=== PATIENT | female | born 1990 | race Hispanic/Latino ===

== ENCOUNTER 2018-07-10 11:06 | Emergency (ER) | payer OTHER ==
--- NOTE | 2018-07-10 11:42 | ED PDOC ---
Syncope/Near Syncope/Dizziness Time Seen by Provider: 07/10/18 11:31 Chief Complaint (Nursing): Syncope Chief Complaint (Provider): Syncope History Per: Patient History/Exam Limitations: no limitations Additional Complaint(s): Pt states this morning she went to the bathroom then went to get some water when she passed out, woke up on floor with pain to back of head and DIAZ but DIAZ since resolved. Denies CP, SOB, palpitations, visual changes. Had same episode in August 2017, evaluated @ [facility], was told she was anemia and had low blood pressure and discharged home. Past Medical History Reviewed: Nursing Documentation, Vital Signs Vital Signs: Last Vital Signs Temp 98.2 F 07/10/18 11:11 Pulse 112 H 07/10/18 11:11 Resp 16 07/10/18 11:11 BP 138/80 07/10/18 11:11 Pulse Ox 100 07/10/18 11:11 - Medical History PMH: Anemia - Family History Family History: States: Unknown Family Hx - Social History Current smoker - smoking cessation education provided: No Alcohol: None Drugs: Denies - Home Medications Home Medications: Ambulatory Orders Medication Instructions Recorded Ferrous Sulfate 325 mg PO BID #20 tablet 07/10/18 Nitrofurantoin Macrocrystals 100 mg PO BID #13 cap 07/10/18 [Macrobid] - Allergies Allergies/Adverse Reactions: Allergies Allergy/AdvReac Type Severity Reaction Status Date / Time No Known Allergies Allergy Verified 07/10/18 11:10 Review of Systems Constitutional: Negative for: Fever, Chills, Weakness, Malaise Eyes: Negative for: Vision Change Cardiovascular: Negative for: Chest Pain, Palpitations Respiratory: Negative for: Cough, Shortness of Breath Gastrointestinal: Negative for: Nausea, Vomiting, Abdominal Pain, Diarrhea Musculoskeletal: Negative for: Neck Pain Skin: Negative for: Rash, Lesions Neurological: Negative for: Weakness, Numbness, Incoordination, Change in Speech, Confusion, Seizures, Altered Mental Status, Headache, Dizziness Physical Exam - Reviewed Nursing Documentation Reviewed: Yes Vital Signs Reviewed: Yes - Physical Exam Appears: Positive for: Well, No Acute Distress Head Exam: Negative for: ATRAUMATIC (Minimal edema R posterior scalp, no laceration, no abrasion) Skin: Positive for: Warm, Dry, Pallor Eye Exam: Positive for: Normal appearance, EOMI, PERRL Neck: Positive for: Normal, Painless ROM, Supple. Negative for: Decreased ROM, Pain On Movement Of Neck Cardiovascular/Chest: Positive for: Regular Rate, Rhythm Respiratory: Positive for: Normal Breath Sounds. Negative for: Rales, Rhonchi, Wheezing Gastrointestinal/Abdominal: Positive for: Normal Exam Back: Positive for: Normal Inspection Extremity: Positive for: Normal ROM Neurologic/Psych: Positive for: Alert, arch support maker II-XII, Oriented. Negative for: Motor/Sensory Deficits, Aphasia - Laboratory Results Result Diagrams: 07/10/18 12:00 07/10/18 12:00 - ECG Interpretation Of ECG: NSR @ 83, IRBBB, no ST-T changes. O2 Sat by Pulse Oximetry: 100 Medical Decision Making Medical Decision Makin yo female with syncope and head injury. - labs - EKG - CT head Accession No. : [id number] Patient Name / ID : HILARIO Bahena / [id number] Exam Date : 07/10/2018 12:14:21 ( Approved ) Study Comment : Sex / Age : F / 27Y Creator : Jonathon Esposito MD Dictator : Jnoathon Esposito MD Business Representative : Breakfast Host : Jonathon Esposito MD Approver2 : Report Date : 07/10/2018 12:47:02 My Comment : Date of service: 07/10/2018 PROCEDURE: CT HEAD WITHOUT CONTRAST. HISTORY: Syncope, head injury COMPARISON: None available. TECHNIQUE: Axial computed tomography images were obtained through the head/brain without intravenous contrast. Supplemental Coronal and Sagittal projections created and reviewed. Radiation dose: Total exam DLP = 671.01 mGy-cm. This CT exam was performed using one or more of the following dose reduction techniques: Automated exposure control, adjustment of the mA and/or kV according to patient size, and/or use of iterative reconstruction technique. FINDINGS: HEMORRHAGE: No intracranial hemorrhage. BRAIN: No mass effect or edema. No atrophy or chronic microvascular ischemic changes. VENTRICLES: Unremarkable. No hydrocephalus. CALVARIUM: Unremarkable. PARANASAL SINUSES: Unremarkable as visualized. No significant inflammatory changes. MASTOID AIR CELLS: Unremarkable as visualized. No inflammatory changes. OTHER FINDINGS: None. IMPRESSION: No acute intracranial abnormalities. No significant findings to account for the clinical presentation. 15:00 Pt refusing CXR. Copy of labs and imaging given to patient. Disposition - Clinical Impression Clinical Impression: Syncope, Chronic anemia, UTI (urinary tract infection) - Disposition Referrals: [facility] [Outside] Disposition: Routine/Home Disposition Time: 14:48 Condition: STABLE Prescriptions: Ferrous Sulfate 325 mg PO BID #20 tablet Nitrofurantoin Macrocrystals [Macrobid] 100 mg PO BID #13 cap Instructions: Urinary Tract Infections in Adults, Anemia Caused by Low Iron, Syncope (Fainting) Forms: [employer] (Romanian)
[2018-07-10 12:01] LABS: SQUAMOUS EPITHIAL 3 /hpf (0-5); URINE BACTERIA OCC (<OCC); URINE BILIRUBIN NEGATIVE (NEGATIVE); URINE BLOOD NEGATIVE (NEGATIVE); URINE CLARITY SLIGHTY-CLOUDY (Clear); URINE COLOR YELLOW (YELLOW); URINE GLUCOSE (UA) NEG (Normal); URINE LEUKOCYTE ESTERASE NEG Leu/uL (Negative); URINE PROTEIN NEGATIVE (NEGATIVE); URINE UROBILINOGEN 0.2-1.0 mg/dL (0.2-1.0)
[2018-07-10 12:16] LABS: BASO % 0.5 % (0.0-2.0); EOS % 0.6 % (0.0-4.0); HEMOGLOBIN 10.9 g/dL (12.0-16.0); LYMPH # 1.6 K/uL (1.0-4.3); LYMPH % 25.3 % (20.0-40.0); MEAN CELL VOLUME 67.1 fl (81.0-99.0); MEAN CORPUSCULAR HGB CONC 32.8 g/dL (33.0-37.0); MEAN PLATELET VOLUME 7.5 fl (7.2-11.7); MONO # 0.5 K/uL (0.0-0.8); MONO % 8.4 % (0.0-10.0); NEUT % 65.2 % (50.0-75.0); NRBC % 0.1 % (0.0-0.0); RBC 4.94 Mil/uL (3.80-5.20); RED CELL DISTRIBUTION WIDTH 14.9 % (11.5-14.5); WHITE BLOOD COUNT 6.1 K/uL (4.8-10.8)
[2018-07-10 12:18] LABS: PROTHROMBIN TIME 11.7 Seconds (9.8-13.1)
[2018-07-10 12:26] LABS: ALB/GLOB RATIO 1.3 (1.0-2.1); ALBUMIN 4.3 g/dL (3.5-5.0); ALT/SGPT 20 U/L (9-52); AST/SGOT 29 U/L (14-36); BLOOD UREA NITROGEN 17 mg/dl (7-17); CALCIUM 9.5 mg/dL (8.4-10.2); GFR NON-AFRICAN AMERICAN > 60
--- NOTE | 2018-07-10 12:50 | CT ---
Date of service: 07/10/2018 PROCEDURE: CT HEAD WITHOUT CONTRAST. HISTORY: Syncope, head injury COMPARISON: None available. TECHNIQUE: Axial computed tomography images were obtained through the head/brain without intravenous contrast. Supplemental Coronal and Sagittal projections created and reviewed. Radiation dose: Total exam DLP = 671.01 mGy-cm. This CT exam was performed using one or more of the following dose reduction techniques: Automated exposure control, adjustment of the mA and/or kV according to patient size, and/or use of iterative reconstruction technique. FINDINGS: HEMORRHAGE: No intracranial hemorrhage. BRAIN: No mass effect or edema. No atrophy or chronic microvascular ischemic changes. VENTRICLES: Unremarkable. No hydrocephalus. CALVARIUM: Unremarkable. PARANASAL SINUSES: Unremarkable as visualized. No significant inflammatory changes. MASTOID AIR CELLS: Unremarkable as visualized. No inflammatory changes. OTHER FINDINGS: None. IMPRESSION: No acute intracranial abnormalities. No significant findings to account for the clinical presentation.
[2018-07-10 13:15] VITALS: RESP 18; TEMP 98.6
[2018-07-10 14:50] VITALS: O2SAT 100
[2018-07-10 15:22] VITALS: BP 121/79; PULSE 84
--- NOTE | 2018-07-10 19:39 | CARD ---
APPROVED REPORT Date of service: 07/10/2018 EKG Measurement Heart [id number] <Conclusion> Normal sinus rhythm Incomplete right bundle branch block Borderline ECG
== END 2018-07-10 15:10 | disposition home or self-care (01) ==
LOC: H.ER 11:06
DX: R55 Syncope and collapse (principal); D64.9 Anemia, unspecified; N39.0 Urinary tract infection, site not specified